=== PATIENT | female | born 1995 | race Caucasian/White ===

== ENCOUNTER 2017-01-28 16:28 | Emergency (ER) | payer OTHER ==
[2017-01-28 16:59] VITALS: BP 133/68
--- NOTE | 2017-01-28 17:00 | UC ---
Complaint Female HPI - HPI Summary HPI Summary: Comes with request of STI testing following a change of sexual partner 2 weeks ago. Used condoms but also had oral intercourse. No history of STI's, had negative Chlamydia/GC/RPR 12/2016, negative HIV at the same time. No symptoms, no vaginal discharge, no pain, no oral lesion, no herpetic lesions. Uses Demetrice IUD for contraception, implanted in September 2016, irregular bleeding since then. Discussed options; declined a pelvic exam, elects screening based on blood and urine samples - History Of Current Complaint Chief Complaint: UCSTDScreening Stated Complaint: PERSONAL Time Seen by Provider: 01/28/17 16:43 Hx Obtained From: Patient Hx Last Menstrual Period: 01/04/17 ?: No Associated Signs And Symptoms: Positive: Negative - Risk Factors Ectopic Risk Factor: IUD Use Ovarian Torsion Risk Factor: Negative - Allergies/Home Medications Allergies/Adverse Reactions: Allergies Allergy/AdvReac Type Severity Reaction Status Date / Time No Known Allergies Allergy Verified 01/28/17 16:33 Home Medications: Home Medications Iud 01/28/17 [History] PMH/Surg Hx/FS Hx/Imm Hx Previously Healthy: Yes - Surgical History Surgical History: None - Family History Known Family History: Positive: None - parents alive and well - Social History Occupation: Employed Full-time - EMT Lives: With Family Alcohol Use: Occasionally Substance Use Type: None Substance Use Comment - Amount & Last Used: more than 4 cups a day Smoking Status (MU): Never Smoked Tobacco Review of Systems Constitutional: Negative Skin: Negative Eyes: Negative ENT: Negative Respiratory: Negative Cardiovascular: Negative Gastrointestinal: Negative Genitourinary: Negative Motor: Negative Neurovascular: Negative Musculoskeletal: Negative Neurological: Negative Psychological: Negative All Other Systems Reviewed And Are Negative: Yes Physical Exam Triage Information Reviewed: Yes Appearance: Well-Appearing Vital Signs: Initial Vital Signs Temp 98.7 F 01/28/17 16:34 Pulse 76 01/28/17 16:34 Resp 16 01/28/17 16:34 BP 133/68 01/28/17 16:34 Pulse Ox 97 01/28/17 16:34 Eye Exam: Normal Eyes: Positive: Conjunctiva Clear ENT: Positive: Normal ENT inspection, Pharynx normal Neck: Positive: Supple, Nontender, No Lymphadenopathy Respiratory Exam: Normal Cardiovascular Exam: Normal Complaint Female Dx - Course Course Of Treatment: here for screening only - Differential Dx/Diagnosis Provider Diagnoses: here for STI screening. Discharge - Discharge Plan Condition: Stable Disposition: HOME Patient Education Materials: Safe Sex (ED) Additional Instructions: The results of the testing will be available in 1 to 2 days. We only call POSITIVE results. Please call on Wednesday the 31 of January if you would like to go through the results.
[2017-01-29 11:21] LABS: Syphilis Index < 0.1 Index
== END 2017-01-28 17:14 | disposition home or self-care (01) ==
LOC: UCCORT 16:28
DX: Z11.3 Encounter for screening for infections with a predominantly sexual mode of transmission (principal); Z11.4 Encounter for screening for human immunodeficiency virus [HIV]
CPT/HCPCS: 36415; 86592; 86703; 87491; 87591; 99211; G0463